=== PATIENT | male | born 1995 | race Caucasian/White ===

== ENCOUNTER 2017-02-01 14:36 | Observation (INO) | payer OTHER ==
[~2017-02-01] VITALS: Ht 182.9 cm; Wt 74.8 kg
[2017-02-01] VITALS (7 sets, daily range): BP systolic 100–131; BP diastolic 49–71; PULSE 74–83; RESP 16–20; TEMP 96.9–98.6; O2SAT 96–100
[~2017-02-01 14:36] MED LIST: CEPH500C3 PO
[2017-02-01] MEDS ORDERED: MORPHINE SULFATE 4 MG/ML INJ IV PUSH ONE (15:00)
[2017-02-01] MEDS ORDERED: ONDANSETRON HCL 4 MG/2 ML VIAL IVP ONE (15:00)
[2017-02-01] MEDS ORDERED: SODIUM CHLORIDE 0.9% FLUSH 10 ML FLUSH IV FLUSH PRN ×2 (15:00→17:45)
--- NOTE | 2017-02-01 15:01 | PD ---
HPI Chief Complaint: GI Complaint Time Seen by Provider: 14:50 Travel History International Travel<30 days: No Contact w/Intl Traveler<30days: No Traveled to known affect area: No History of Present Illness HPI PATIENT C/O LOWER ABDOMINAL CRAMPY PAIN, WITH NAUSEA AND SOMETIMES DIARRHEA, THAT HAS BEEN ONGOING INTERMITTENTLY FOR PAST 3 MONTHS OR SO...NO PCP, NO WORKUP BEFORE....CURRENTLY NO FEVER PFSH Past Medical History Medical History: Denies Significant Hx Diminished Hearing: No Past Surgical History Surgical History: No Previous Surgery Social History Alcohol Use: Yes (OCC) Tobacco Use: No Substance Use: Yes (SMOKES MARIJUANA) Allergies-Medications (Allergen,Severity, Reaction): Coded Allergies: No Known Allergies (Unverified , 02/01/17) Reported Meds & Prescriptions Reported Meds & Active Scripts Active No Active Prescriptions or Reported Medications Review of Systems Except as stated in HPI: all other systems reviewed are Neg Gastrointestinal: Positive: Nausea, Diarrhea, Abdominal Pain Physical Exam Narrative GENERAL: SKIN: Warm and dry. HEAD: Atraumatic. Normocephalic. EYES: Pupils equal and round. No scleral icterus. No injection or drainage. ENT: No nasal bleeding or discharge. Mucous membranes pink and moist. NECK: Trachea midline. No JVD. CARDIOVASCULAR: Regular rate and rhythm. RESPIRATORY: No accessory muscle use. Clear to auscultation. Breath sounds equal bilaterally. GASTROINTESTINAL: Abdomen soft, non-tender, nondistended. Hepatic and splenic margins not palpable. MUSCULOSKELETAL: Extremities without clubbing, cyanosis, or edema. No obvious deformities. NEUROLOGICAL: Awake and alert. No obvious cranial nerve deficits. Motor grossly within normal limits. Five out of 5 muscle strength in the arms and legs. Normal speech. PSYCHIATRIC: Appropriate mood and affect; insight and judgment normal. Data Data Last Documented VS Vital Signs Date Time Temp Pulse Resp B/P Pulse Ox O2 Delivery O2 Flow Rate FiO2 02/01/17 17:12 75 20 100/49 100 02/01/17 14:42 98.6 Orders Complete Blood Count With Diff (02/01/17 14:56) Comprehensive Metabolic Panel (02/01/17 14:56) Lipase (02/01/17 14:56) Ct Abd/Pel W Iv Contrast(Rout) (02/01/17 14:56) Iv Access Insert/Monitor (02/01/17 14:56) Ecg Monitoring (02/01/17 14:56) Oximetry (02/01/17 14:56) NPO (02/01/17 14:56) Morphine Inj (Morphine Inj) (02/01/17 15:00) Ondansetron Inj (Zofran Inj) (02/01/17 15:00) Sodium Chloride 0.9% Flush (Ns Flush) (02/01/17 15:00) Iohexol 350 Inj (Omnipaque 350 Inj) (02/01/17 16:29) Ceftriaxone Inj (Rocephin Inj) (02/01/17 17:15) Metronidazole 500 Mg Inj (Flagyl 500 Mg (02/01/17 17:15) Labs Laboratory Tests Test 02/01/17 15:15 White Blood Count 13.5 TH/MM3 Red Blood Count 4.75 MIL/MM3 Hemoglobin 15.1 GM/DL Hematocrit 43.4 % Mean Corpuscular Volume 91.5 FL Mean Corpuscular Hemoglobin 31.7 PG Mean Corpuscular Hemoglobin 34.6 % Concent Red Cell Distribution Width 12.6 % Platelet Count 173 TH/MM3 Mean Platelet Volume 8.2 FL Neutrophils (%) (Auto) 83.5 % Lymphocytes (%) (Auto) 6.0 % Monocytes (%) (Auto) 5.9 % Eosinophils (%) (Auto) 2.8 % Basophils (%) (Auto) 1.8 % Neutrophils # (Auto) 11.3 TH/MM3 Lymphocytes # (Auto) 0.8 TH/MM3 Monocytes # (Auto) 0.8 TH/MM3 Eosinophils # (Auto) 0.4 TH/MM3 Basophils # (Auto) 0.2 TH/MM3 CBC Comment DIFF FINAL Differential Comment Sodium Level 143 MEQ/L Potassium Level 3.9 MEQ/L Chloride Level 106 MEQ/L Carbon Dioxide Level 30.9 MEQ/L Anion Gap 6 MEQ/L Blood Urea Nitrogen 5 MG/DL Creatinine 0.99 MG/DL Estimat Glomerular Filtration 95 ML/MIN Rate Random Glucose 93 MG/DL Calcium Level 9.0 MG/DL Total Bilirubin 0.3 MG/DL Aspartate Amino Transf 10 U/L (AST/SGOT) Alanine Aminotransferase 16 U/L (ALT/SGPT) Alkaline Phosphatase 63 U/L Total Protein 7.0 GM/DL Albumin 4.0 GM/DL Lipase 121 U/L [facility] Medical Decision Making Medical Screen Exam Complete: Yes Emergency Medical Condition: Yes Medical Record Reviewed: Yes Differential Diagnosis APPY V DIVERTIC V RENAL STONES V IBS (CHRON'S, ULCERATIVE COLITIS) V LIVER/GB/ PANCREAS DZ Narrative Course PATIENT'S LAB SUGGESTED BACTERIAL INFECTION WITH LEUKOCYTOSIS AND NEUTROPHILIA...CT ABD SHOWS POSSIBLE INTRAPERITONEAL INFLAMMATION? WILL GIVE IV ABX AND ADMIT, WILL RECC GI CONSULT WELL SINCE CT DID NOT SHOW ANY SURGICAL FINDING (NO APPY, NO ABSCESS, NO DIVERTIC ETC) Scripts No Active Prescriptions or Reported Meds Condition: Stable Merritt Guo MD Feb 01, 2017 15:01
[2017-02-01 15:21] LABS: AUTOMATED NEUTROPHIL # 11.3 TH/MM3 (1.8-7.7); BASOPHIL # 0.2 TH/MM3 (0-0.2); BASOPHIL % 1.8 % (0.0-2.0); EOSINOPHIL # 0.4 TH/MM3 (0-0.4); EOSINOPHIL % 2.8 % (0.0-4.0); HEMATOCRIT 43.4 % (39.0-51.0); LYMPHOCYTE # 0.8 TH/MM3 (1.0-4.8); MEAN CELL VOLUME 91.5 FL (80.0-100.0); MEAN CORPUSCULAR HEMOGLOBIN 31.7 PG (27.0-34.0); MEAN CORPUSCULAR HGB CONC 34.6 % (32.0-36.0); MONO % 5.9 % (0.0-8.0); NEUT % 83.5 % (16.0-70.0); PLATELET COUNT 173 TH/MM3 (150-450); RED BLOOD COUNT 4.75 MIL/MM3 (4.50-5.90); RED CELL DISTRIBUTION WIDTH 12.6 % (11.6-17.2); WHITE BLOOD COUNT 13.5 TH/MM3 (4.0-11.0)
[2017-02-01 15:30] LABS: CHLORIDE 106 MEQ/L (98-107); POTASSIUM 3.9 MEQ/L (3.5-5.1); SODIUM (NA) 143 MEQ/L (136-145)
[2017-02-01 15:32] LABS: HEMO FLAGS DIFF FINAL
[2017-02-01 15:34] LABS: ANION GAP 6 MEQ/L (5-15); BICARBONATE 30.9 MEQ/L (21.0-32.0); BLOOD UREA NITROGEN 5 MG/DL (7-18)
[2017-02-01 15:37] LABS: ALT (GPT) 16 U/L (12-78); AST (GOT) 10 U/L (15-37); GLOMERULAR FILTRATION RATE 95 ML/MIN (>89)
[2017-02-01 15:38] LABS: TOTAL BILIRUBIN ADULT 0.3 MG/DL (0.2-1.0)
[2017-02-01 15:40] LABS: ALKALINE PHOSPHATASE 63 U/L (45-117)
[2017-02-01] MEDS ORDERED: IOHEXOL 350 MG/ML 10 ML VIAL (for RAD DIAG) IV ONE (16:29)
--- NOTE | 2017-02-01 16:52 | RADHPO ---
EXAM DATE/TIME: 02/01/2017 16:06 [place] COMPARISON: No previous studies available for comparison. INDICATIONS : Patient has had diffuse abdominal pain and toward the left side for over a month. IV CONTRAST: 96 cc Omnipaque 350 (iohexol) IV ORAL CONTRAST: No oral contrast ingested. RADIATION DOSE: 6.39 CTDIvol (mGy) MEDICAL HISTORY : None SURGICAL HISTORY : None. ENCOUNTER: Initial ACUITY: 1 month PAIN SCALE: 5/10 LOCATION: Left lower and upper quadrant TECHNIQUE: Volumetric scanning of the abdomen and pelvis was performed. Using automated exposure control and ad justment of the mA and/or kV according to patient size, radiation dose was kept as low as reasonably achievable to obtain optimal diagnostic quality images. FINDINGS: LOWER LUNGS: The visualized lower lungs are clear. LIVER: Homogeneous density without lesion. There is no dilation of the biliary tree. No calcified gallston es. SPLEEN: Normal size without lesion. PANCREAS: Within normal limits. KIDNEYS: Normal in size and shape. There is no mass, stone or hydronephrosis. ADRENAL GLANDS: Within normal limits. VASCULAR: There is no aortic aneurysm. BOWEL/MESENTERY: The stomach, small bowel, and colon demonstrate no acute abnormality. No free air. There is small antony e fluid in the pelvic cavity. Appendix is well-visualized, normal. ABDOMINAL WALL: Within normal limits. RETROPERITONEUM: There is no lymphadenopathy. BLADDER: No wall thickening or mass. REPRODUCTIVE: Within normal limits. INGUINAL: There is no lymphadenopathy or hernia. MUSCULOSKELETAL: Within normal limits for patient age. CONCLUSION: Small free fluid in the pelvic cavity that should be considered abnormal in a patient this age and jeong ggesting a low-grade intraperitoneal inflammatory process. However, a clear etiology is not seen. No obstruction or high-grade inflammatory changes are seen. The appendix is normal. There is no lymphade nopathy. Matteo Burks MD on February 01, 2017 at 16:43 Board Certified Radiologist. This report was verified electronically.
[2017-02-01] MEDS ORDERED: metroNIDAZOLE 500 MG INJ 100 ML IV ONE (17:15)
[2017-02-01] MEDS ORDERED: cefTRIAXone INJ 1,000 MG in SODIUM CHLORIDE 0.9% INJ 100 ML IV ONE (17:15)
[2017-02-01] MEDS ORDERED: ONDANSETRON HCL 4 MG/2 ML VIAL IVP PRN (17:45)
[2017-02-01] MEDS ORDERED: ACETAMINOPHEN 325 MG TAB PO PRN (17:45)
--- NOTE | 2017-02-01 17:46 | HHI.HP ---
[facility] No Primary Care Physician Admission Diagnosis ABDOMINAL PAIN WITH LEUKOCYTOSIS Diagnoses: Chief Complaint: Abdominal pain Travel History International Travel<30 Days: No Contact w/Intl Traveler <30 Da: No Traveled to Known Affected Are: No History of Present Illness Patient's 21 year-old gentleman with minimal past history who admits 3 months of intermittent abdominal pain which he described as unprovoked and usually resolving spontaneously. For the last week the pain has become more severe and less likely to subside on its own although he did not take any medications. He had one week also of diarrhea and he denies fevers or chills. There has been no hematochezia or hematemesis and no melena. Patient has no previous diagnosis of gastrointestinal problems and he does admit smoking marijuana daily for the last 5 years and denies alcohol occasionally. He does not take anti-inflammatories. He describes the diarrhea as watery brown stool without any blood. There has been some mucus. Patient did have mild leukocytosis with abnormal finding on CT and was recommended for observation in the emergency room Review of Systems Constitutional: DENIES: Diaphoretic episodes, Fatigue, Fever, Weight gain, Weight loss, Chills, Dizziness, Change in appetite, Night Sweats Endocrine: DENIES: Heat/cold intolerance, Polydipsia, Polyuria, Polyphagia Eyes: DENIES: Blurred vision, Diplopia, Eye inflammation, Eye pain, Vision loss , Photosensitivity, Double Vision Ears, nose, mouth, throat: DENIES: Tinnitus, Hearing loss, Vertigo, Nasal discharge, Oral lesions, Throat pain, Hoarseness, Ear Pain, Running Nose, Epistaxis, Sinus Pain, Toothache, Odynophagia Respiratory: DENIES: Apneas, Cough, Snoring, Wheezing, Hemoptysis, Sputum production, Shortness of breath Cardiovascular: DENIES: Chest pain, Palpitations, Syncope, Dyspnea on Exertion , PND, Lower Extremity Edema, Orthopnea, Claudication Gastrointestinal: COMPLAINS OF: Abdominal pain Genitourinary: DENIES: Sexual dysfunction, Urinary frequency, Urinary incontinence, Urgency, Hematuria, Dysuria, Nocturia, Penile Discharge, Testicular Pain, Testicular Swelling Musculoskeletal: DENIES: Joint pain, Muscle aches, Stiffness, Joint Swelling, Back pain, Neck pain Integumentary: DENIES: Abnormal pigmentation, Nail changes, Pruritus, Rash Hematologic/lymphatic: DENIES: Bruising, Lymphadenopathy Immunologic/allergic: DENIES: Eczema, Urticaria Neurologic: DENIES: Abnormal gait, Headache, Localized weakness, Paresthesias, Seizures, Speech Problems, Tremor, Poor Balance Psychiatric: DENIES: Anxiety, Confusion, Mood changes, Depression, Hallucinations, Agitation, Suicidal Ideation, Homicidal Ideation, Delusions Past Family Social History Past Medical History Denies Past Surgical History Denies Reported Medications Reviewed in the medical record Allergies: Coded Allergies: No Known Allergies (Unverified , 02/01/17) Active Ordered Medications Reviewed in the medical record Family History Irritable bowel syndrome and multiple family members Social History No tobacco, occasional alcohol and chronic marijuana Physical Exam Vital Signs Vital Signs Date Time Temp Pulse Resp B/P Pulse Ox O2 Delivery O2 Flow Rate FiO2 02/01/17 17:12 75 20 100/49 100 02/01/17 16:21 74 18 121/50 96 02/01/17 15:23 83 18 126/55 100 02/01/17 15:17 97 02/01/17 14:42 98.6 74 16 131/71 99 Physical Exam GENERAL: This is a well-nourished, well-developed patient, in no apparent distress. SKIN: No rashes, ecchymoses or lesions. Cool and dry. HEAD: Atraumatic. Normocephalic. No temporal or scalp tenderness. EYES: Pupils equal round and reactive. Extraocular motions intact. No scleral icterus. No injection or drainage. ENT: Nose without bleeding, purulent drainage or septal hematoma. Throat without erythema, tonsillar hypertrophy or exudate. Uvula midline. Airway patent. NECK: Trachea midline. No JVD or lymphadenopathy. Supple, nontender, no meningeal signs. CARDIOVASCULAR: Regular rate and rhythm without murmurs, gallops, or rubs. RESPIRATORY: Clear to auscultation. Breath sounds equal bilaterally. No wheezes , rales, or rhonchi. GASTROINTESTINAL: Abdomen soft, non-tender, nondistended. No hepato-splenomegaly , or palpable masses. No guarding. MUSCULOSKELETAL: Extremities without clubbing, cyanosis, or edema. No joint tenderness, effusion, or edema noted. No calf tenderness. Negative Homans sign bilaterally. NEUROLOGICAL: Awake and alert. Cranial nerves II through XII intact. Motor and sensory grossly within normal limits. Five out of 5 muscle strength in all muscle groups. Normal speech. Laboratory Laboratory Tests Test 02/01/17 15:15 White Blood Count 13.5 Red Blood Count 4.75 Hemoglobin 15.1 Hematocrit 43.4 Mean Corpuscular Volume 91.5 Mean Corpuscular Hemoglobin 31.7 Mean Corpuscular Hemoglobin 34.6 Concent Red Cell Distribution Width 12.6 Platelet Count 173 Mean Platelet Volume 8.2 Neutrophils (%) (Auto) 83.5 Lymphocytes (%) (Auto) 6.0 Monocytes (%) (Auto) 5.9 Eosinophils (%) (Auto) 2.8 Basophils (%) (Auto) 1.8 Neutrophils # (Auto) 11.3 Lymphocytes # (Auto) 0.8 Monocytes # (Auto) 0.8 Eosinophils # (Auto) 0.4 Basophils # (Auto) 0.2 CBC Comment DIFF FINAL Differential Comment Sodium Level 143 Potassium Level 3.9 Chloride Level 106 Carbon Dioxide Level 30.9 Anion Gap 6 Blood Urea Nitrogen 5 Creatinine 0.99 Estimat Glomerular Filtration 95 Rate Random Glucose 93 Calcium Level 9.0 Total Bilirubin 0.3 Aspartate Amino Transf 10 (AST/SGOT) Alanine Aminotransferase 16 (ALT/SGPT) Alkaline Phosphatase 63 Total Protein 7.0 Albumin 4.0 Lipase 121 Result Diagram: 02/01/17 1515 02/01/17 1515 Imaging Last Impressions Abdomen/Pelvis CT 02/01/17 1456 Signed Impressions: Service Date/Time: Wednesday, February 01, 2017 16:06 - CONCLUSION: Small free fluid in the pelvic cavity that should be considered abnormal in a patient this age and suggesting a low-grade intraperitoneal inflammatory process. However, a clear etiology is not seen. No obstruction or high-grade inflammatory changes are seen. The appendix is normal. There is no lymphadenopathy. Matteo Burks MD Assessment and Plan Problem List: (1) Leukocytosis ICD Code: D72.829 Status: Acute Plan: We'll follow trend in a.m., encourage fluid intake IV hydration Rule out infectious cause (2) Abdominal pain ICD Code: R10.9 Status: Acute Plan: May be due to inflammatory bowel versus chronic marijuana exposure Empiric Cipro Flagyl overnight and transition to oral in a.m. Likely discharge in a.m. Add Protonix Code Status Full code Discussed Condition With Discussed with patient, mom and ER Kaylee Brennan MD Feb 01, 2017 17:46
[2017-02-01] MEDS: PANTOPRAZOLE SOD 40 MG DELAYED RELEASE TAB PO SCH (18:15)
[2017-02-01] MEDS: SODIUM CHLORIDE 0.9% FLUSH 10 ML FLUSH IV FLUSH SCH (21:00)
[2017-02-01] MEDS: SODIUM CHLOR 0.9% 1000 ML INJ 1,000 ML IV SCH (22:38)
[2017-02-01] MEDS: CIPROFLOXACIN 400 MG PREMIX 200 ML IV SCH (22:38)
[2017-02-02 00:11] VITALS: BP 130/60; PULSE 71; RESP 16; TEMP 98.5; O2SAT 95
[2017-02-02 00:13] VITALS: BP 130/60; PULSE 71; RESP 16; TEMP 98.5; O2SAT 95
[2017-02-02] MEDS: metroNIDAZOLE 500 MG INJ 100 ML IV SCH ×2 (01:27→07:50)
[2017-02-02] MEDS: SODIUM CHLOR 0.9% 1000 ML INJ 1,000 ML IV SCH ×2 (05:52→07:51)
[2017-02-02] MEDS: CIPROFLOXACIN 400 MG PREMIX 200 ML IV SCH (05:52)
[2017-02-02] MEDS ORDERED: METR-1 PO (07:25)
[2017-02-02] MEDS ORDERED: CIPR-9 PO (07:25)
--- NOTE | 2017-02-02 07:26 | HHI.DCPOC ---
Discharge Care Plan Diagnosis: (1) Leukocytosis (2) Abdominal pain Goals to Promote Your Health * To prevent worsening of your condition and complications * To maintain your health at the optimal level Directions to Meet Your Goals Take your medications as prescribed Follow your dietary instruction Follow activity as directed Keep your appointments as scheduled Take your immunizations and boosters as scheduled If your symptoms worsen call your PCP, if no PCP go to Urgent Care Center or Emergency Room Smoking is Dangerous to Your Health. Avoid second hand smoke Call the 24-hour hour crisis hotline for domestic abuse at Kaylee Hernandez MD Feb 02, 2017 07:26
[2017-02-02] MEDS: SODIUM CHLORIDE 0.9% FLUSH 10 ML FLUSH IV FLUSH SCH (07:50)
[2017-02-02] MEDS: PANTOPRAZOLE SOD 40 MG DELAYED RELEASE TAB PO SCH (07:50)
[2017-02-02 07:59] LABS: BASOPHIL % 0.4 % (0.0-2.0); EOSINOPHIL # 0.5 TH/MM3 (0-0.4); EOSINOPHIL % 5.9 % (0.0-4.0); HEMATOCRIT 42.7 % (39.0-51.0); HEMO FLAGS DIFF FINAL; LYMPH % 14.7 % (9.0-44.0); LYMPHOCYTE # 1.3 TH/MM3 (1.0-4.8); MEAN CELL VOLUME 91.9 FL (80.0-100.0); MEAN CORPUSCULAR HEMOGLOBIN 31.2 PG (27.0-34.0); PLATELET COUNT 164 TH/MM3 (150-450); RED BLOOD COUNT 4.64 MIL/MM3 (4.50-5.90); RED CELL DISTRIBUTION WIDTH 12.8 % (11.6-17.2); WHITE BLOOD COUNT 8.8 TH/MM3 (4.0-11.0)
[2017-02-02 08:00] VITALS: BP 120/60; PULSE 70; RESP 20; TEMP 98; O2SAT 98
--- NOTE | 2017-02-02 08:55 | HHI.DS ---
Discharge Summary Admission Date Feb 01, 2017 at 17:30 Discharge Date: Feb 02, 2017 Admitting Diagnosis ABDOMINAL PAIN WITH LEUKOCYTOSIS (1) Leukocytosis ICD Code: D72.829 (2) Abdominal pain ICD Code: R10.9 Procedures none Brief History - From Admission Patient's 21 year-old gentleman with minimal past history who admits 3 months of intermittent abdominal pain which he described as unprovoked and usually resolving spontaneously. For the last week the pain has become more severe and less likely to subside on its own although he did not take any medications. He had one week also of diarrhea and he denies fevers or chills. There has been no hematochezia or hematemesis and no melena. Patient has no previous diagnosis of gastrointestinal problems and he does admit smoking marijuana daily for the last 5 years and denies alcohol occasionally. He does not take anti-inflammatories. He describes the diarrhea as watery brown stool without any blood. There has been some mucus. Patient did have mild leukocytosis with abnormal finding on CT and was recommended for observation in the emergency room CBC/BMP: 02/02/17 0732 02/01/17 1515 Significant Findings Laboratory Tests Test 02/01/17 02/02/17 15:15 07:32 White Blood Count 13.5 TH/MM3 (4.0-11.0) Neutrophils (%) (Auto) 83.5 % (16.0-70.0) Lymphocytes (%) (Auto) 6.0 % (9.0-44.0) Neutrophils # (Auto) 11.3 TH/MM3 (1.8-7.7) Lymphocytes # (Auto) 0.8 TH/MM3 (1.0-4.8) Blood Urea Nitrogen 5 MG/DL (7-18) Aspartate Amino Transf 10 U/L (15-37) (AST/SGOT) Monocytes (%) (Auto) 11.0 % (0.0-8.0) Eosinophils (%) (Auto) 5.9 % (0.0-4.0) Monocytes # (Auto) 1.0 TH/MM3 (0-0.9) Eosinophils # (Auto) 0.5 TH/MM3 (0-0.4) Imaging Last Impressions Abdomen/Pelvis CT 02/01/17 1456 Signed Impressions: Service Date/Time: Wednesday, February 01, 2017 16:06 - CONCLUSION: Small free fluid in the pelvic cavity that should be considered abnormal in a patient this age and suggesting a low-grade intraperitoneal inflammatory process. However, a clear etiology is not seen. No obstruction or high-grade inflammatory changes are seen. The appendix is normal. There is no lymphadenopathy. Matteo Burks MD PE at Discharge GENERAL: This is a well-nourished, well-developed patient, in no apparent distress. CARDIOVASCULAR: Regular rate and rhythm without murmurs, gallops, or rubs. RESPIRATORY: Clear to auscultation. Breath sounds equal bilaterally. No wheezes , rales, or rhonchi. GASTROINTESTINAL: Abdomen soft, non-tender, nondistended. Normal active bowel sounds MUSCULOSKELETAL: Extremities without clubbing, cyanosis, or edema. NEURO: Alert & Oriented x4 to person, place, time, situation. Moves all ext x4 Pt update on day of discharge Patient seen today in follow-up for atypical and nonspecific abdominal discomfort with associated leukocytosis. Leukocytosis improved. Abdominal pain resolved. Discharge plans discussed with patient and mom at bedside. Patient advised to discontinue excessive marijuana and to increase his exercise and healthy diet Hospital Course This patient's 21-year-old gentleman who admits intermittent abdominal pain and was evaluated and found to have nonspecific inflammation. Patient was given empiric doses of Cipro and Flagyl and recommended discontinue cannabis and was discharged home. Pt Condition on Discharge: Good Discharge Disposition: Discharge Home Discharge Time: > 30 minutes Discharge Instructions DIET: Follow Instructions for: As Tolerated, No Restrictions Activities you can perform: Regular-No Restrictions New Medications: Ciprofloxacin (Cipro) 500 Mg Tab 500 MG PO BID Infection #14 Ref 0 TAB Metronidazole (Flagyl) 500 Mg Tab 500 MG PO TID Infection #21 Ref 0 TAB Kaylee Hernandez MD Feb 02, 2017 08:55
== END 2017-02-02 09:45 | disposition home or self-care (01) ==
LOC: PHED 14:36 → PHEDA 17:30 → PH3B 18:43
PROVIDERS: ADMIT Hospitalist; ATTEND Hospitalist
DX: R10.9 Unspecified abdominal pain (principal); R19.7 Diarrhea, unspecified; D72.829 Elevated white blood cell count, unspecified; F12.90 Cannabis use, unspecified, uncomplicated
CPT/HCPCS: 74177; 80053; 83690; 85025; 96365; 96375; 99285; G0378; J0696; J0744; J2270; J2405; J7030; Q9967

== ENCOUNTER 2017-03-08 09:29 | Emergency (ER) | payer BC ==
[~2017-03-08] VITALS: Ht 182.9 cm; Wt 71.4 kg
[~2017-03-08 09:29] MED LIST changes: -CEPH500C3 PO; +CIPR-9 PO; +METR-1 PO
[2017-03-08 09:35] VITALS: BP 129/63; PULSE 56; RESP 16; TEMP 97.8; O2SAT 100
[2017-03-08 09:56] LABS: BLOOD, URINE NEG (NEG); GLUCOSE,URINE NEG (NEG); KETONE, URINE NEG (NEG); NITRITE,URINE NEG (NEG)
[2017-03-08 10:02] LABS: CULTURE IF INDICATED CULT NOT INDICATED; METHOD OF COLLECTION CLEAN CATCH; SQUAMOUS EPITHELIAL CELL URINE 0-5 /hpf (0-5); URINE COLOR YELLOW (YELLW/STRAW)
[2017-03-08 10:03] LABS: COMMENT (UR) CULT NOT INDICATED; COMMENT2 (UR) MUCOUS PRESENT
[2017-03-08 10:11] VITALS: RESP 16; O2SAT 100
[2017-03-08] MEDS ORDERED: SODIUM CHLORIDE 0.9% FLUSH 10 ML FLUSH IV FLUSH PRN (10:15)
--- NOTE | 2017-03-08 10:15 | PD ---
HPI Chief Complaint: Abdominal Pain Time Seen by Provider: 10:06 Travel History International Travel<30 days: No Contact w/Intl Traveler<30days: No Traveled to known affect area: No History of Present Illness HPI Patient presents with continued intermittent abdominal discomfort aggravated over the last week. Reports loose stools. Denies nausea or vomiting. Denies blood per stool. Workup approximately a month ago with findings suggestive of an inflammatory process. Patient was observed in the hospital and discharged on 2 oral antibiotics. He did not follow-up with gastroenterology. States he felt as if his symptoms never completely resolved. Minimal alcohol. Decreased marijuana use. Reports she has change his diet recently trying to eat more healthy. No previous testing for gluten or dairy intolerance. PFSH Past Medical History Autoimmune Disease: No Anxiety: Yes Depression: Yes Cancer: No Cardiovascular Problems: No Diabetes: No Diminished Hearing: No Endocrine: No Genitourinary: Yes (kidney stones in past) Implanted Vascular Access Dvce: No Kidney Stones: Yes Neurologic: No Psychiatric: No Reproductive: No Respiratory: No Thyroid Disease: No Tetanus Vaccination: < 5 Years Past Surgical History Surgical History: No Previous Surgery Other Surgery: No Social History Alcohol Use: Yes (OCC) Tobacco Use: No Substance Use: No Allergies-Medications (Allergen,Severity, Reaction): Coded Allergies: No Known Allergies (Unverified , 03/08/17) Reported Meds & Prescriptions Reported Meds & Active Scripts Active No Active Prescriptions or Reported Medications Review of Systems General / Constitutional: No: Fever Eyes: No: Visual changes HENT: No: Headaches Cardiovascular: No: Chest Pain or Discomfort Respiratory: No: Shortness of Breath Gastrointestinal: Positive: Diarrhea, Abdominal Pain Genitourinary: No: Dysuria Musculoskeletal: No: Pain Skin: No Rash Neurologic: No: Weakness Psychiatric: No: Depression Endocrine: No: Polydipsia Hematologic/Lymphatic: No: Easy Bruising Physical Exam Narrative GENERAL: Well-nourished, well-developed patient. SKIN: Focused skin assessment warm/dry. HEAD: Normocephalic. EYES: No scleral icterus. No injection or drainage. NECK: Supple, trachea midline. No JVD or lymphadenopathy. CARDIOVASCULAR: Regular rate and rhythm without murmurs, gallops, or rubs. RESPIRATORY: Breath sounds equal bilaterally. No accessory muscle use. GASTROINTESTINAL: Abdomen soft, non-tender, nondistended. Positive bowel sounds MUSCULOSKELETAL: No cyanosis, or edema. BACK: Nontender without obvious deformity. No CVA tenderness. Data Data Last Documented VS Vital Signs Date Time Temp Pulse Resp B/P Pulse Ox O2 Delivery O2 Flow Rate FiO2 03/08/17 10:11 16 100 Room Air 03/08/17 09:35 97.8 56 129/63 Orders Urinalysis - C+S If Indicated (03/08/17 09:33) Complete Blood Count With Diff (03/08/17 10:08) Comprehensive Metabolic Panel (03/08/17 10:08) Lipase (03/08/17 10:08) Lactic Acid (03/08/17 10:08) Ct Abd/Pel W Iv Contrast(Rout) (03/08/17 10:08) Iv Access Insert/Monitor (03/08/17 10:08) Ecg Monitoring (03/08/17 10:08) Oximetry (03/08/17 10:08) Sodium Chloride 0.9% Flush (Ns Flush) (03/08/17 10:15) Iohexol 350 Inj (Omnipaque 350 Inj) (03/08/17 10:28) Labs Laboratory Tests Test 03/08/17 03/08/17 09:46 10:16 Urine Collection Type CLEAN CATCH Urine Color YELLOW Urine Turbidity CLEAR Urine pH 6.0 Urine Specific [place] 1.023 Urine Protein NEG mg/dL Urine Glucose (UA) NEG mg/dL Urine Ketones NEG mg/dL Urine Occult Blood NEG Urine Nitrite NEG Urine Bilirubin NEG Urine Leukocyte Esterase NEG Urine Squamous Epithelial 0-5 /hpf Cells Urine Amorphous Sediment FEW Microscopic Urinalysis Comment CULT NOT INDICATED Urine Collection Time 0946 White Blood Count 9.0 TH/MM3 Red Blood Count 4.82 MIL/MM3 Hemoglobin 15.0 GM/DL Hematocrit 44.1 % Mean Corpuscular Volume 91.4 FL Mean Corpuscular Hemoglobin 31.1 PG Mean Corpuscular Hemoglobin 34.0 % Concent Red Cell Distribution Width 12.5 % Platelet Count 180 TH/MM3 Mean Platelet Volume 8.8 FL Neutrophils (%) (Auto) 64.8 % Lymphocytes (%) (Auto) 21.4 % Monocytes (%) (Auto) 7.1 % Eosinophils (%) (Auto) 5.5 % Basophils (%) (Auto) 1.2 % Neutrophils # (Auto) 5.9 TH/MM3 Lymphocytes # (Auto) 1.9 TH/MM3 Monocytes # (Auto) 0.6 TH/MM3 Eosinophils # (Auto) 0.5 TH/MM3 Basophils # (Auto) 0.1 TH/MM3 CBC Comment DIFF FINAL Differential Comment Sodium Level 143 MEQ/L Potassium Level 4.1 MEQ/L Chloride Level 107 MEQ/L Carbon Dioxide Level 30.5 MEQ/L Anion Gap 6 MEQ/L Blood Urea Nitrogen 11 MG/DL Creatinine 0.91 MG/DL Estimat Glomerular Filtration 105 ML/MIN Rate Random Glucose 76 MG/DL Lactic Acid Level 0.7 mmol/L Calcium Level 8.8 MG/DL Total Bilirubin 0.6 MG/DL Aspartate Amino Transf 14 U/L (AST/SGOT) Alanine Aminotransferase 17 U/L (ALT/SGPT) Alkaline Phosphatase 59 U/L Total Protein 6.9 GM/DL Albumin 4.0 GM/DL Lipase 207 U/L [facility] Medical Decision Making Medical Screen Exam Complete: Yes Emergency Medical Condition: Yes Differential Diagnosis Enteritis, colitis, irritable bowel, ulcerative colitis, Crohn's, gluten intolerance Narrative Course Assessment and plan discussed with patient at bedside. Labs within normal limits. Last 72 hours Impressions Abdomen/Pelvis CT 03/08/17 1008 Signed Impressions: Service Date/Time: Wednesday, March 08, 2017 10:11 - CONCLUSION: 1. Resolution of previously seen fluid in the pelvis. 2. Possible reactive normal-sized lymph nodes in the right lower quadrant within the mesentery. 3. Spondylolysis at L5 is difficult to exclude based on this examination. Madhavi Funes MD Diagnosis Primary Impression: Abdominal pain Qualified Code: R10.84 - Generalized abdominal pain Patient Instructions: General Instructions Additional Instructions: Encouraged to follow-up with gastroenterology. Encouraged a bland BRAT diet. Consider eliminating dairy or gluten from his diet. Encouraged fluids. Return to emergency room with any onset of new symptoms. Med/Other Pt SpecificInfo: No Meds Exist/No RX given Scripts No Active Prescriptions or Reported Meds Disposition: 01 DISCHARGE HOME Condition: Good Chuy Zimmerman MD Mar 08, 2017 10:15
[2017-03-08 10:22] LABS: AUTOMATED NEUTROPHIL # 5.9 TH/MM3 (1.8-7.7); BASOPHIL # 0.1 TH/MM3 (0-0.2); BASOPHIL % 1.2 % (0.0-2.0); EOSINOPHIL # 0.5 TH/MM3 (0-0.4); EOSINOPHIL % 5.5 % (0.0-4.0); HEMATOCRIT 44.1 % (39.0-51.0); HEMO FLAGS DIFF FINAL; LYMPH % 21.4 % (9.0-44.0); LYMPHOCYTE # 1.9 TH/MM3 (1.0-4.8); MEAN CELL VOLUME 91.4 FL (80.0-100.0); MEAN CORPUSCULAR HEMOGLOBIN 31.1 PG (27.0-34.0); MONO % 7.1 % (0.0-8.0); NEUT % 64.8 % (16.0-70.0); PLATELET COUNT 180 TH/MM3 (150-450); RED BLOOD COUNT 4.82 MIL/MM3 (4.50-5.90); RED CELL DISTRIBUTION WIDTH 12.5 % (11.6-17.2)
[2017-03-08] MEDS ORDERED: IOHEXOL 350 MG/ML 10 ML VIAL (for RAD DIAG) IV ONE (10:28)
[2017-03-08 10:29] LABS: CHLORIDE 107 MEQ/L (98-107); POTASSIUM 4.1 MEQ/L (3.5-5.1); SODIUM (NA) 143 MEQ/L (136-145)
[2017-03-08 10:33] LABS: ANION GAP 6 MEQ/L (5-15); BICARBONATE 30.5 MEQ/L (21.0-32.0); BLOOD UREA NITROGEN 11 MG/DL (7-18)
[2017-03-08 10:36] LABS: ALT (GPT) 17 U/L (12-78); AST (GOT) 14 U/L (15-37); GLOMERULAR FILTRATION RATE 105 ML/MIN (>89)
[2017-03-08 10:37] LABS: TOTAL BILIRUBIN ADULT 0.6 MG/DL (0.2-1.0)
[2017-03-08 10:39] LABS: ALKALINE PHOSPHATASE 59 U/L (45-117)
--- NOTE | 2017-03-08 10:59 | RADRPT ---
EXAM DATE/TIME: 03/08/2017 10:11 [place] COMPARISON: No previous studies available for comparison. INDICATIONS : Lower abdominal pain. IV CONTRAST: 100 cc Omnipaque 350 (iohexol) IV ORAL CONTRAST: No oral contrast ingested. RADIATION DOSE: 5.30 CTDIvol (mGy) MEDICAL HISTORY : None SURGICAL HISTORY : None. ENCOUNTER: Initial ACUITY: 1 day PAIN SCALE: 5/10 LOCATION: Bilateral lower quadrant across abdomen. TECHNIQUE: Volumetric scanning of the abdomen and pelvis was performed. Using automated exposure control and ad justment of the mA and/or kV according to patient size, radiation dose was kept as low as reasonably achievable to obtain optimal diagnostic quality images. DICOM format image data is available electro nically for review and comparison. FINDINGS: CT Abdomen: The liver, spleen, pancreas, kidneys, adrenals are unremarkable. There is no evidence for any appreciable pathological adenopathy, free fluid, or bowel obstruction. CT pelvis: There is no evidence for mass, abscess formation, or any significant adenopathy within the pelvis. Slight hypertrophic change is seen involving the facets L5-S1 bilaterally and chronic spondy lolysis of L5 is difficult to exclude. Previously seen fluid in the pelvis is no longer seen. The ap pendix appears intact without definite signs of appendicitis. There are a few lymph nodes in the mese ntery right lower quadrant the largest measures almost a centimeter in size mostly be benign possibly reactive. CONCLUSION: 1. Resolution of previously seen fluid in the pelvis. 2. Possible reactive normal-sized lymph nodes in the right lower quadrant within the mesentery. 3. Spondylolysis at L5 is difficult to exclude based on this examination. Madhavi Funes MD on March 08, 2017 at 10:54 Board Certified Radiologist. This report was verified electronically.
== END 2017-03-08 11:27 | disposition home or self-care (01) ==
LOC: PHED 09:29
DX: R10.30 Lower abdominal pain, unspecified (principal); Z87.442 Personal history of urinary calculi
CPT/HCPCS: 74177; 80053; 81001; 83605; 83690; 85025; 99285; Q9967